=== PATIENT | female | born 1970 | race Two or more races ===

== ENCOUNTER 2023-07-04 12:03 | Outpatient (OUT) | payer MEDICARE, MEDICAID, SELFPAY ==
--- NOTE | 2023-07-04 | XR_ITS ---
The [address] [address] Patient Name: MATT PIERCE MRN: [id number] date: 1970 Sex: F Assigned Patient Location: [facility] Current Patient Location: [facility] Accession/Order Number: [id number] Exam Date: 07/04/2023 12:20 Report Date: 07/04/2023 13:33 At the request of: NON-STAFF PHYSICIAN Procedure: XR knee RT 4V EXAM: XR knee RT 4V HISTORY: BILATERAL KNEE PAIN. M25.561 COMPARISON: None. TECHNIQUE: 4 views FINDINGS: No acute fracture or dislocation. No significant degenerative changes. Mild soft tissue swelling. XR/XR knee RT 4V IMPRESSION: [Unremarkable exam. Electronically authenticated by: NIDHI ROBERSON Date: 07/04/2023 13:33
== END 2023-07-04 12:04 | disposition home or self-care (01) ==
LOC: RAD 12:12
DX: M25.561 Pain in right knee (principal); M25.562 Pain in left knee; R60.0 Localized edema
CPT/HCPCS: 73564

== ENCOUNTER 2024-02-22 23:25 | Emergency (ER) | payer MEDICARE, MEDICAID, SELFPAY ==
[2024-02-22 23:25] VITALS: BP 104/61; PULSE 90; TEMP 37.1; O2SAT 94
--- NOTE | 2024-02-22 23:35 | ECG_ITS ---
The [facility] Test Date: 2024-02-22 Pat Name: MATT PIERCE Department: Room: - Gender: Female [employer] Developer: : 1970 Requested By: [id number] Order Number: [id number] Reading MD: MARCOS NICK Measurements Intervals [place] Rate: 88 P: 40 PA: 154 QRS: 87 QRSD: 82 T: 67 QT: 380 QTc: 426 Interpretive Statements 1100 Sinus rhythm 9110 normal ECG No previous ECG available for comparison Electronically Signed On 02-23-2024 6:35:35 EDT by MARCOS NICK
--- NOTE | 2024-02-22 23:35 | XR_ITS ---
The [address] [address] Patient Name: MATT PIERCE MRN: [id number] date: 1970 Sex: F Assigned Patient Location: ER Current Patient Location: ED.MAIN Accession/Order Number: [id number] Exam Date: 02/22/2024 23:42 Report Date: 02/23/2024 00:56 At the request of: CORY MARKER Procedure: XR ankle LT min 3V EXAM: XR ankle LT min 3V HISTORY: The patient is a 53-year-old female, fall, ankle injury COMPARISON: None. FINDINGS: There is a plate across the lateral malleolus with no radiographic evidence of hardware loosening or failure. No acute or ununited fractures are seen within the distal left fibula. No acute or ununited fractures are seen within or around the ankle joint. The ankle mortise is intact and uniform. The syndesmosis is maintained. XR/XR ankle LT min 3V IMPRESSION: No acute or ununited fractures seen. Electronically authenticated by: BERONICA LUX Date: 02/23/2024 00:56
--- NOTE | 2024-02-22 23:36 | ED.LOWEXI1 ---
HPI HPI - Extremity Injury (Lower) General Chief Complaint: Extremity Injury, Lower Stated Complaint: fall Time Seen by Provider: 02/22/24 23:30 Source: patient Mode of arrival: ambulance Limitations: no limitations History of Present Illness HPI Narrative: This 53-year-old female is brought to the emergency department by EMS from [facility] for evaluation of a left ankle injury. The patient is accompanied by an employee from the [facility]. The patient states that she fell in the bathroom. The employee from the healthcare facility states that she was getting ready to finish her shift and saw the patient walking into the bathroom. She then heard a loud thud on the floor and went to the bathroom and found the patient sprawled out on the bathroom floor. The patient denied hitting her head. She was able to get up on her own and ambulate back to her bed. The patient explained to the employee that she was dizzy which is why she fell. The patient states that she went from a sitting position to a standing position quickly and got dizzy at that time. She denies striking her head. She has no neck or back pain. She has some mild swelling to the lateral malleolus. She states she had surgery in this area in the past. She has no chest pain or shortness of breath. She denies any knee or hip pain. No medications were given prior to arrival. Related Data Home Medications ?Medication ?Instructions ?Recorded ?Confirmed atorvastatin 20 mg tablet mg 02/22/24 benztropine 0.5 mg tablet mg 02/22/24 cyanocobalamin (vitamin B-12) mcg 02/22/24 1,000 mcg/mL injection solution cyclosporine 0.05 % eye drops in a drp ophthalmic (eye) 02/22/24 dropperette ferrous sulfate 325 mg (65 mg mg 02/22/24 iron) tablet fluoxetine 40 mg capsule mg 02/22/24 lamotrigine 100 mg tablet mg 02/22/24 lamotrigine 25 mg tablet mg 02/22/24 loratadine 10 mg tablet (Allergy mg 02/22/24 Relief (loratadine)) midodrine 2.5 mg tablet mg 02/22/24 minocycline 100 mg capsule mg 02/22/24 multivitamin tab 02/22/24 olanzapine 2.5 mg tablet mg 02/22/24 omeprazole 40 mg capsule,delayed mg 02/22/24 release peg 400-propylene glycol 0.4 %-0.3 drp ophthalmic (eye) 02/22/24 % eye drops (Systane (propylene glycol)) primidone 50 mg tablet mg 02/22/24 risperidone 0.5 mg tablet mg 02/22/24 risperidone 1 mg tablet mg 02/22/24 spironolactone 50 mg tablet mg 02/22/24 topiramate 200 mg tablet mg 02/22/24 topiramate 50 mg tablet mg 02/22/24 Allergies Allergy/AdvReac Type Severity Reaction Status Date / Time No Known Drug Allergies Allergy Verified 02/22/24 23:30 Opioid HPI Opioid Management Most Recent Pain and Opioid Data: Last Pain Scale 10 02/23/24 00:01 Last MAR Pain Assessment 02/23/24 00:01 Review of Systems ROS Status of ROS 10 or more systems reviewed and unremarkable except as noted in history and below Exam Narrative Exam Narrative: Vital signs and Nursing Notes reviewed: Patient is afebrile with a normal pulse, blood pressure is mildly low at 104/61, she is not hypoxic with pulse ox of 94% on room air General: Awake, alert, oriented, no acute distress, lying comfortably on the stretcher, patient has a resting tremor HEENT: Normocephalic atraumatic, mucous membranes are moist and pink, eyes are clear, normal conjunctiva, vision is grossly intact, posterior pharynx is normal in appearance. Neck: Supple, no midline bony vertebral tenderness or step-off Chest: Lungs are clear to auscultation with good air entry, there is no wheezing rhonchi or rales appreciated no accessory muscle use, patient is speaking in complete sentences-no chest wall tenderness to palpation CVS: Regular rate and rhythm S1-S2, no murmurs rubs or gallops, pulses are brisk and equal bilaterally ABD: Soft, nondistended, nontender, no rebound guarding or rigidity, bowel sounds are normal, no pulsatile masses appreciated, stable pelvic rock Extremities: Moving all extremities, patient is able to flex and extend at the left hip and knee. There is mild tenderness at the left lateral malleolus. Achilles is intact. There is no bony tenderness of the foot. Feet are warm and sensate. Dorsalis pedis pulses brisk. Skin: Normal in appearance without rash,pallor, petechiae or purpura Neuro: No focal deficits, resting tremor Constitutional Vital Signs, click to edit/add: Last Vital Signs Temp 98.7 F 02/22/24 23:25 Pulse 90 02/22/24 23:25 Resp 20 02/22/24 23:25 BP 104/61 02/22/24 23:25 Pulse Ox 94 L 02/22/24 23:25 O2 Del Method Room Air 02/22/24 23:25 Course Vital Signs Vital signs: Vital Signs Temperature 98.7 F 02/22/24 23:25 Pulse Rate 90 02/22/24 23:25 Respiratory Rate 20 02/22/24 23:25 Blood Pressure 104/61 02/22/24 23:25 Pulse Oximetry 94 L 02/22/24 23:25 Oxygen Delivery Method Room Air 02/22/24 23:25 Temperature 98.7 F 02/22/24 23:25 Pulse Rate 90 02/22/24 23:25 Respiratory Rate 20 02/22/24 23:25 Blood Pressure 104/61 02/22/24 23:25 Pulse Oximetry 94 L 02/22/24 23:25 Oxygen Delivery Method Room Air 02/22/24 23:25 MDM - Extremity Injury (Lower) MDM Narrative Medical decision making narrative: This 53-year-old female who has had surgery on her left fibula in the past presents for evaluation of left lateral malleolus pain after falling in the bathroom at the extended care facility where she currently resides. According to the employee of the [facility] care facility where she resides she saw her walking to the bathroom and then heard a thud in the bathroom and found her on the floor. She explains that the patient told her that she was dizzy prior to arrival. The patient denies any dizziness to me. Her vital signs are stable. She has some mild tenderness to the left lateral malleolus. She was medicated emergency department with a dose of Tylenol. EKG was ordered due to the history of dizziness and is a normal sinus rhythm without acute changes. X-ray of the left ankle shows hardware intact with no acute fracture or dislocation. An ron wrap was applied by myself and she was placed in an ankle stirrup splint. She will be discharged home with a prescription for ibuprofen and referral to outpatient orthopedics Medical Records Medical records narrative: The [address] [address] XRay Report Signed Patient: MATT PIERCE MR#: [id number] : 1970 Acct:[id number] Age/Sex: 53 / F ADM Date: 02/22/24 Loc: ER Attending Dr: Ordering Physician: Laura Conley Date of Service: 02/22/24 Procedure(s): XR ankle LT min 3V Accession Number(s): [id number] cc: Laura Conley; Jose Cummings D.O.~ The [place] [id number] Patient Name: MATT PIERCE MRN: [id number] date: 1970 Sex: F Assigned Patient Location: ER Current Patient Location: ED.MAIN Accession/Order Number: [id number] Exam Date: 02/22/2024 23:42 Report Date: 02/23/2024 00:56 At the request of: LAURA CONLEY Procedure: XR ankle LT min 3V EXAM: XR ankle LT min 3V HISTORY: The patient is a 53-year-old female, fall, ankle injury COMPARISON: None. FINDINGS: There is a plate across the lateral malleolus with no radiographic evidence of hardware loosening or failure. No acute or ununited fractures are seen within the distal left fibula. No acute or ununited fractures are seen within or around the ankle joint. The ankle mortise is intact and uniform. The syndesmosis is maintained. XR/XR ankle LT min 3V IMPRESSION: No acute or ununited fractures seen. Electronically authenticated by: BERONICA LUX Date: 02/23/2024 00:56 ECG Data Attestation: I personally reviewed and interpreted this ECG as follows: (Normal sinus rhythm 88 bpm, normal axis, normal intervals, no acute ST segment elevation or T wave inversion) Discharge Plan Discharge Stand Alone Forms: Portal Instructions Chief Complaint: Extremity Injury, Lower Clinical Impression: Ankle sprain and strain Patient Disposition: Home, Self-Care Time of Disposition Decision: 00:39 Condition: Good Prescriptions / Home Meds: No Action multivitamin Tablet fluoxetine 40 mg capsule primidone 50 mg tablet atorvastatin 20 mg tablet benztropine 0.5 mg tablet minocycline 100 mg capsule olanzapine 2.5 mg tablet omeprazole 40 mg capsule,delayed release(DR/EC) lamotrigine 25 mg tablet cyanocobalamin (vitamin B-12) 1,000 mcg/mL solution ferrous sulfate 325 mg (65 mg iron) tablet topiramate 200 mg tablet midodrine 2.5 mg tablet risperidone 1 mg tablet lamotrigine 100 mg tablet loratadine [Allergy Relief (loratadine)] 10 mg tablet risperidone 0.5 mg tablet spironolactone 50 mg tablet cyclosporine 0.05 % dropperette OPHTHALMIC (EYE) Systane (propylene glycol) 0.4-0.3 % drops OPHTHALMIC (EYE) topiramate 50 mg tablet Print Language: Greenlandic Instructions: Ankle Sprain (ED), Ankle Stirrup Splint (ED), P.R.I.C.E. Treatment (ED) Referrals: Physician,Non-Staff, [Physician] - 1 week Mickey Peguero MD [Physician] - As needed
[2024-02-23] MEDS: ACETAMINOPHEN 325 MG TABLET 650 MG PO (00:01)
== END 2024-02-23 01:11 | disposition home or self-care (01) ==
PROVIDERS: Emergency Provider Emergency Medicine; PCP Family Medicine
DX: S93.402A Sprain of unspecified ligament of left ankle, initial encounter (principal); S96.912A Strain of unspecified muscle and tendon at ankle and foot level, left foot, initial encounter; W19.XXXA Unspecified fall, initial encounter
CPT/HCPCS: 73610; 93005; 99284